=== PATIENT | male | born 1940 | race Caucasian/White ===

== ENCOUNTER 2018-09-22 16:20 | Inpatient (IN) ==
--- NOTE | 2018-09-22 16:40 | ED ---
HPI General Chief Complaint: Arrhythmia / Palpitations Stated Complaint: Irregular heart rate complaint Time Seen by Provider: 09/22/18 16:30 Source: patient Mode of arrival: ambulatory Limitations: no limitations History of Present Illness HPI narrative: 78-year-old male with PMH of tachyarrhythmia, hypertension, A fib s/p ablation presents to the ED via private vehicle for evaluation of palpitations. Onset at 2 AM this morning. He was seen earlier in the ED and discharged home. He states that after he got home the tachycardia has not resolved and this is the reason for his visit. He states that he feels like "heart jumping around in there." He denies associated dizziness, vision changes , chest pain shortness of breath, nausea, vomiting, diaphoresis. He states that he has been monitoring the heart rate both on his Fitbit and with a oximeter at home. He did drive himself to the hospital today. He is concerned that he is in A. fib. He is followed by Dr. Phillips. When he was seen this morning he was administered a dose of long-acting Cardizem after Dr. Chisholm spoke with Dr. Saeed. Related Data Home Medications Medication Instructions Recorded Confirmed diazepam 15 mg PO DAILY 09/04/18 09/22/18 flecainide 100 mg PO Q12H 09/04/18 09/22/18 hydrochlorothiazide 25 mg PO DAILY 09/04/18 09/22/18 irbesartan 150 mg PO DAILY 09/04/18 09/22/18 rivaroxaban [Xarelto] 20 mg PO DAILY 09/04/18 09/22/18 tadalafil [Cialis] 10 mg PO DAILY 09/04/18 09/22/18 Previous Rx's Medication Instructions Recorded amlodipine 10 mg PO DAILY #30 tab 09/08/18 diltiazem HCl [Cardizem CD] 120 mg PO DAILY #30 cap 09/22/18 Allergies Allergy/AdvReac Type Severity Reaction Status Date / Time No Known Allergies Allergy Verified 09/22/18 16:28 Review of Systems ROS: all other systems reviewed are negative [facility] Medical History Medical History AAA (abdominal aortic aneurysm) (Acute) Afib (Acute) Femoral artery stenosis (Acute) HTN (hypertension) (Acute) Surgical History Surgical History History of radiofrequency ablation (RFA) procedure for cardiac arrhythmia (Acute ) Social History Social History Substance History: No History of Abuse Second Hand Smoke Exposure: No Smoking Status: Former smoker Tobacco Type: Cigarettes How Often Do You Have a Drink Containing Alcohol: Never Recent Travel in [facility] within the Last 8 Weeks: No Recent Out of Country Travel within the Last 8 Weeks: No Course Initial Documented Vital Signs Temperature 98.4 F 09/22/18 16:26 Pulse Rate 128 H 09/22/18 16:26 Respiratory Rate 18 09/22/18 16:26 Blood Pressure 136/68 09/22/18 16:26 Pulse Oximetry 98 09/22/18 16:26 Last Documented Vital Signs Temperature 98.4 F 09/22/18 16:26 Pulse Rate 74 09/22/18 19:08 Respiratory Rate 17 09/22/18 19:07 Blood Pressure 130/71 09/22/18 19:07 Pulse Oximetry 97 09/22/18 19:07 Medical Decision Making MDM Narrative Medical decision making narrative: 78-year-old male with PMH of tachyarrhythmia , hypertension, A fib s/p ablation presents to the ED via private vehicle for evaluation of palpitations. Patient is otherwise asymptomatic. He is concerned that he is in A. fib. He is followed by Dr. Phillips. When he was seen this morning he was administered a dose of long-acting Cardizem after Dr. Chisholm spoke with Dr. Saeed. I reviewed the patient's chart. I discussed the patient with Dr. Chisholm. Heart rate 128 on arrival, EKG with A. fib versus flutter. The patient was administered 2.5 mg of metoprolol. Recheck heart rate in the 70s, EKG concerning for heart block. I discussed the results of the workup with the patient as well as the need for admission and cardiac consultation. He is agreeable to this plan. Pacer pads placed in the ED. I spoke with Dr. Rajan who agrees to accept the patient to the medicine service. Please see medicine notes for disposition. Medical Screen Exam Complete: Yes Emergency Medical Condition: Yes Differential Diagnosis Differential Diagnosis: arrythmia versus anxiety versus ACS versus other ECG Data EKG Prior to Arrival: No Attestation: I personally reviewed and interpreted this ECG as follows: Interpretation: EKG rate 111, A. fib versus a flutter with RVR. Reviewed by Dr. Chisholm. Second EKG acquired after administration of labetalol, rate 69, sinus rhythm with sinus arrhythmia and short OK interval. Normal axis. Questionable block. Reviewed by Dr. Chisholm. Discharge Plan Discharge Order Discharge Orders: ED Use Only Admit Order (Routine); Ordered 09/22/18 Ordered By: Rossy Toth Physicians Team ED Provider: Nba Chisholm ED Midlevel Provider: Rossy Toth Primary Care Provider: Gurpreet Gerard Attending Provider: Rebecca Rajan Rxs /Orders / Referrals /Forms Prescriptions: No Action flecainide 100 mg Tablet 100 mg PO Q12H RF: 0 hydrochlorothiazide 25 mg Tablet 25 mg PO DAILY RF: 0 irbesartan 150 mg Tablet 150 mg PO DAILY RF: 0 diazepam 5 mg Tablet 15 mg PO DAILY RF: 0 tadalafil [Cialis] 10 mg Tablet 10 mg PO DAILY RF: 0 rivaroxaban [Xarelto] 20 mg Tablet 20 mg PO DAILY RF: 0 amlodipine 10 mg tablet 10 mg PO DAILY Qty: 30 RF: 0 diltiazem HCl [Cardizem CD] 120 mg capsule,extended release 24hr 120 mg PO DAILY Qty: 30 RF: 0 Discharge Interventions Interventions: Vital Signs Last Done: 09/22/18 19:07 Status ED Status: Admitted Observation Patient
[2018-09-22] MEDS ORDERED: Metoprolol Inj 5 MG/5 ML Vial IV.PUSH ONE (16:52)
[2018-09-22] MEDS ORDERED: Bisacodyl 10 MG Supp RECTAL PRN (22:33)
[2018-09-22] MEDS ORDERED: Acetaminophen 325 MG Tablet PO PRN (22:33)
--- NOTE | 2018-09-22 22:50 | P.HP ---
History of Present Illness Service: [facility] Primary Care Physician: Gurpreet Gerard MD History of Present Illness: 78-year-old male with a past medical history significant for atrial fibrillation anticoagulated on Xarelto, hypertension, hyperlipidemia and PTSD presents to the emergency department for the evaluation of heart palpitations. The patient reports that at 2:15 AM yesterday he awoke from sleep feeling clammy with palpitations. He took his heart rate at home and it was 217. He returned to sleep and upon waking his heart rate was still elevated this time in the 130s and he came to the ED for further evaluation. He was evaluated and treated with p.o. diltiazem at the recommendation of his acct exec. The patient reports that 2 weeks ago he was taken off diltiazem. His heart rate stayed in the 120s upon returning to home and he came back to the emergency department for further evaluation. He denies any chest pain or shortness of breath. No abdominal pain. No nausea/vomiting did no focal neurologic deficits. No fever/chills. His acct exec is Dr. Phillips. Review of Systems All other systems reviewed negative except as stated [facility] - History History Provided By: Patient - Medical History Medical History: Medical History (Last Updated 09/22/18 @ 22:41 by Rebecca Rajan MD) HLD (hyperlipidemia) PTSD (post-traumatic stress disorder) PVD (peripheral vascular disease) AAA (abdominal aortic aneurysm) Afib Femoral artery stenosis HTN (hypertension) - Surgical History Surgical History: Surgical History (Last Updated 09/22/18 @ 22:41 by Rebecca Rajan MD) History of neck surgery History of radiofrequency ablation (RFA) procedure for cardiac arrhythmia - Family History Family History: Family History (Last Updated 09/22/18 @ 22:41 by Rebecca Rajan MD) Other Adopted - Tobacco History Second Hand Smoke Exposure: No Smoking Status: Former smoker Tobacco Type: Cigarettes - Alcohol History How Often Do You Have a Drink Containing Alcohol: Never - Substance Use History Substance History: No History of Abuse - Travel History Recent Travel in the [place] Within the Last 8 Weeks: No Recent Travel Out of the Country Within the Last 8 Weeks: No - Immunization History Tetanus Immunization: Unsure Medications and Allergies Allergies Allergy/AdvReac Type Severity Reaction Status Date / Time No Known Allergies Allergy Verified 09/22/18 16:28 Home Medications Medication Instructions Recorded Confirmed Type diazepam 15 mg PO DAILY 09/04/18 09/22/18 History flecainide 100 mg PO Q12H 09/04/18 09/22/18 History hydrochlorothiazide 25 mg PO DAILY 09/04/18 09/22/18 History irbesartan 150 mg PO DAILY 09/04/18 09/22/18 History rivaroxaban [Xarelto] 20 mg PO DAILY 09/04/18 09/22/18 History tadalafil [Cialis] 10 mg PO DAILY 09/04/18 09/22/18 History Exam Vital signs: Vital Signs 09/22/18 16:26 09/22/18 16:28 09/22/18 19:07 Temperature 98.4 F Pulse Rate 128 H 101 H 70 Respiratory Rate 18 21 17 Blood Pressure 136/68 162/85 H 130/71 Pulse Oximetry 98 98 97 09/22/18 19:08 09/22/18 22:06 09/22/18 22:08 Temperature Pulse Rate 74 95 H Respiratory Rate 16 Blood Pressure 160/72 H Pulse Oximetry 97 97 Intake & Output 09/22/18 09/22/18 09/23/18 06:59 18:59 06:59 Weight 86.183 kg Narrative: Gen.: No acute distress Head: Normocephalic. Atraumatic. EENT: Pupils equal round and reactive to light. Nose without drainage. Airway intact. Throat without injection. Cardiovascular: Regular rate and irregularly irregular rhythm. No murmurs, rubs or gallops. Respiratory: Lungs clear to auscultation bilaterally. No wheezes or rhonchi. Abdomen: Soft, nontender, nondistended. No peritoneal signs. Musculoskeletal: No gross deformities. No edema. Skin: No obvious rashes or erythema. Neuro: Sensory and motor grossly intact. Cranial nerves II through XII grossly intact. Caprini VTE Risk Assessment Caprini VTE Risk Assessment: Moderate/High Risk (score >= 2) Caprini Risk Assessment Model: Point Value = 1 Point Value = 2 Point Value = 3 Point Value = 5 Age 41-60 Minor surgery BMI > 25 kg/m2 Swollen legs Varicose veins or History of unexplained or recurrent spontaneous Oral contraceptives or hormone replacement Sepsis (< 1 month) Serious lung disease, including pneumonia (< 1 month) Abnormal pulmonary function Acute myocardial infarction Congestive heart failure (< 1 month) History of inflammatory bowel disease Medical patient at bed rest Age 61-74 Arthroscopic surgery Major open surgery (> 45 min) Laparoscopic surgery (> 45 min) Malignancy Confined to bed (> 72 hours) Immobilizing plaster cast Central venous access Age >= 75 History of VTE Family history of VTE Factor V Leiden Prothrombin [id number] Lupus anticoagulant Anticardiolipin antibodies Elevated serum homocysteine Heparin-induced thrombocytopenia Other congenital or acquired thrombophilia Stroke (< 1 month) Elective arthroplasty Hip, pelvis, or leg fracture Acute spinal cord injury (< 1 month) Prophylaxis Regimen: Total Risk Factor Score Risk Level Prophylaxis Regimen 0-1 Low Early ambulation 2 Moderate Order ONE of the following: *Sequential Compression Device (SCD) *Heparin 5000 units SQ BID 3-4 Higher Order ONE of the following medications: *Heparin 5000 units SQ TID *Enoxaparin/Lovenox 40 mg SQ daily (WT < 150 kg, CrCl > 30 mL/min) *Enoxaparin/Lovenox 30 mg SQ daily (WT < 150 kg, CrCl > 10-29 mL/min) *Enoxaparin/Lovenox 30 mg SQ BID (WT < 150 kg, CrCl > 30 mL/min) AND/OR *Sequential Compression Device (SCD) 5 or more Highest Order ONE of the following medications: *Heparin 5000 units SQ TID (Preferred with Epidurals) *Enoxaparin/Lovenox 40 mg SQ daily (WT < 150 kg, CrCl > 30 mL/min) *Enoxaparin/Lovenox 30 mg SQ daily (WT < 150 kg, CrCl > 10-29 mL/min) *Enoxaparin/Lovenox 30 mg SQ BID (WT < 150 kg, CrCl > 30 mL/min) AND *Sequential Compression Device (SCD) Assessment and Plan - Plan Assessment/plan: 1. Abnormal EKG EKG shows sinus arrhythmia, concern for complete heart block, as P waves may be nonconducting due to short PA interval Cardiology consulted, appreciate assistance Pacer pads placed on pacing, atropine bedside, continuous telemetry 2. Atrial fibrillation Continue home Xarelto Avoid beta blockers/calcium channel blockers given possibility of heart block 3. Hypertension/hyperlipidemia/PTSD Continue home medications once cleared by cardiology FEN N.p.o. Electrolytes: Monitor and replete as needed Xarelto NS at 100 cc/hour
[2018-09-23 00:08] LABS: Creatine Kinase 40 U/L (39-308)
[2018-09-23] MEDS: Sod Chloride 0.9% Inj 1,000 ML IV.CONT SCH ×2 (00:10→15:38)
[2018-09-23] MEDS ORDERED: diazePAM 5 MG Tablet PO ONE (03:05)
[2018-09-23 07:05] LABS: Baso # (Auto) 0.1 th/mm3 (0.0-0.2); Baso % (Auto) 0.6 % (0.0-2.0); Eos # (Auto) 0.3 th/mm3 (0.0-0.4); Eos % (Auto) 2.9 % (0.0-4.0); Hematocrit 44.6 % (39.0-51.0); Hemoglobin 15.2 gm/dL (13.0-17.0); Lymph # (Auto) 2.6 th/mm3 (1.0-4.8); Mean Corpuscular Hemoglobin 29.6 pg (27.0-34.0); Mean Corpuscular Volume 87.1 fL (80.0-100.0); Mean Platelet Volume 8.1 fL (7.0-11.0); Mono # (Auto) 0.9 th/mm3 (0.0-0.9); Mono % (Auto) 8.3 % (0.0-8.0); Neut # (Auto) 6.9 th/mm3 (1.8-7.7); Neut % (Auto) 64.2 % (16.0-70.0); Platelet Count 279 th/mm3 (150-450); Red Blood Count 5.12 mil/mm3 (4.50-5.90); Red Cell Distribution Width 14.7 % (11.6-17.2); White Blood Count 10.7 th/mm3 (4.0-11.0)
[2018-09-23 07:14] LABS: Anion Gap 8 meq/L (5-15); Blood Urea Nitrogen 18 mg/dL (7-18); Calcium 8.6 mg/dL (8.5-10.1); Carbon Dioxide 24.4 meq/L (21.0-32.0); Chloride 108 meq/L (98-107); Glomerular Filtration Rate 75 mL/min (>89); Glucose,Random 82 mg/dL (74-106); Potassium 3.9 meq/L (3.5-5.1); Sodium 140 meq/L (136-145)
[2018-09-23 07:25] LABS: Creatine Kinase 40 U/L (39-308)
[2018-09-23] MEDS ORDERED: Senna/Docusate Sodium 8.6/50 MG Tablet PO SCH (09:00)
[2018-09-23] MEDS: Rivaroxaban 20 MG Tablet PO SCH (09:14)
[2018-09-23] MEDS ORDERED: dilTIAZem 30 MG Tablet PO PRN ×2 (10:29→10:48)
--- NOTE | 2018-09-23 11:09 | MB ---
cc: Cam Saeed MD DATE: 09/23/2018 REASON FOR CONSULTATION: Tachybrady syndrome. HISTORY OF PRESENT ILLNESS: The patient is a very pleasant 38-year-old gentleman who sees my partner, Dr. Phillips, who has a history of apparently [id number] atrial fibrillation. He presented with symptoms of rapid heart rate following the discontinuation of his Cardizem as an outpatient. While in the emergency department, he was given IV medication which slowed his heart rate down apparently quite significantly resulting in an intermittent heart block. The patient was completely asymptomatic and transferred to [facility] for observation and management. Currently, the patient is in what appears to be a rate-controlled atrial fibrillation on the monitor, although there are bouts of what appeared to be sinus rhythm with isorhythmic AV dissociation and a relatively fast junctional escape. Again, currently the patient is completely asymptomatic without any chest pain, shortness of breath, lightheadedness, dizziness. PAST MEDICAL HISTORY: Atrial fibrillation, on Xarelto. CURRENT MEDICATIONS: 1. Tylenol. 2. Xarelto 20 mg daily. ALLERGIES: NO KNOWN DRUG ALLERGIES. PHYSICAL EXAMINATION: VITAL SIGNS: Afebrile, pulse 82, respiratory rate 18, BP 141/74, saturating 95 on 2 liters. GENERAL: Pleasant gentleman in no distress. NECK: No JVD. LUNGS: Clear to auscultation bilaterally. CARDIOVASCULAR: Regular rate and rhythm. No significant murmurs appreciated. ABDOMEN: Benign. EXTREMITIES: No edema. LABORATORY DATA: White count 10.7, hematocrit 44.6, platelets 279. Sodium 140, potassium 3.9, chloride 100, bicarbonate 24.4, BUN 18, creatinine 0.97, glucose 82. Troponins are negative x2. EKG shows what appears to show a complete heart block with a sinus rate of about 100 with a relatively fast junctional escape at about 65. There does appear to be intermittent conduction. ASSESSMENT: Sick sinus syndrome. The patient with a history of atrial fibrillation who has had both tachycardia and bradycardia responses with intermittent reasonably high-grade heart block. There are reports in the emergency department that he dropped significantly lower heart rate [place] with a higher degree AV block, though I do not have any strips to document this. At this point, I think it is at least reasonable to consider a pacemaker and the patient tells me he has been discussing this with Dr. Phillips for quite some time. I will add p.r.n. oral Cardizem today and Dr. Phillips can see him tomorrow regarding a possible pacemaker. Thank you again for the opportunity to participate in this patient's care. MD MARC Fraga/keith , 10:28 AM , 10:37 AM
--- NOTE | 2018-09-23 12:45 | P.PN ---
Subjective Interval history: Follow-up sick sinus syndrome September 23, 2018-patient seen and examined, denies any chest pain or shortness of breath. Was seen by cardiology this a.m. Cardizem was added to patient's current medication Physical Exam Vital signs: Vital Signs 09/22/18 16:26 09/22/18 16:28 09/22/18 19:07 Temperature 98.4 F Pulse Rate 128 H 101 H 70 Respiratory Rate 18 21 17 Blood Pressure 136/68 162/85 H 130/71 Pulse Oximetry 98 98 97 09/22/18 19:08 09/22/18 22:06 09/22/18 22:08 Temperature Pulse Rate 74 95 H Respiratory Rate 16 Blood Pressure 160/72 H Pulse Oximetry 97 97 09/23/18 00:08 09/23/18 00:50 09/23/18 02:23 Temperature Pulse Rate 63 66 66 Respiratory Rate 13 12 Blood Pressure 124/64 127/69 Pulse Oximetry 95 100 09/23/18 04:00 09/23/18 08:00 09/23/18 12:00 Temperature 98.1 F 98.2 F 98.0 F Pulse Rate 66 82 71 Respiratory Rate 16 18 18 Blood Pressure 157/80 H 141/74 H 100/49 L Pulse Oximetry 98 95 95 Intake & Output 09/22/18 09/23/18 09/23/18 18:59 06:59 18:59 Intake Total 0 / 0 Output Total 750 / 750 Balance -750 / -750 Weight 86.183 kg 86.2 kg Intake: Oral 0 / 0 Output: Urine 750 / 750 Other: Date of Last Bowel Movement 09/22/18 09/22/18 Narrative: GENERAL: NAD SKIN: Warm and dry. HEAD: Normocephalic. EYES: No scleral icterus. No injection or drainage. NECK: Supple, trachea midline. No JVD or lymphadenopathy. CARDIOVASCULAR: Regular rate and rhythm without murmurs, gallops, or rubs. Trans pacer in place RESPIRATORY: Breath sounds equal bilaterally. No accessory muscle use. GASTROINTESTINAL: Abdomen soft, non-tender, nondistended. MUSCULOSKELETAL: No cyanosis, or edema. BACK: Nontender without obvious deformity. No CVA tenderness. Results - Labs CBC & Chem 7: 09/23/18 05:48 09/23/18 05:48 Laboratory Results - last 24 hr 09/22/18 09/23/18 09/23/18 23:34 05:48 05:48 WBC 10.7 RBC 5.12 Hgb 15.2 Hct 44.6 MCV 87.1 MCH 29.6 MCHC 34.0 RDW 14.7 Plt Count 279 MPV 8.1 Neut % (Auto) 64.2 Lymph % (Auto) 24.0 [place] % (Auto) 8.3 H Eos % (Auto) 2.9 Baso % (Auto) 0.6 Neut # (Auto) 6.9 Lymph # (Auto) 2.6 [place] # (Auto) 0.9 Eos # (Auto) 0.3 Baso # (Auto) 0.1 WBC Differential . Differential Comment Auto diff final Sodium 140 Potassium 3.9 Chloride 108 H Carbon Dioxide 24.4 Anion Gap 8 BUN 18 Creatinine 0.97 Estimated GFR 75 L Random Glucose 82 Calcium 8.6 Total Creatine Kinase 40 40 Troponin I Less than 0.02 L Less than 0.02 L Assessment and Plan - Plan 78-year-old man with Sick sinus syndrome Appreciate input from cardiology Immigration Judge has been consulted for evaluation for possible PPM placement September 24, 2018 Continue with calcium channel swetha Atrial fibrillation Continue home Messirelderloy Currently on Cardizem Hypertension/hyperlipidemia/PTSD Continue home medications Will keep n.p.o. after midnight
--- NOTE | 2018-09-23 13:57 | ECG ---
Date Performed: 09/22/2018 Time Performed: 16:49:07 PTAGE: 78 years EKG: SINUS TACHYCARDIA WITH MOBITZ 1 AV BLOCK INTRAVENTRICULAR CONDUCTION DELAY ABNORMAL ECG Com pared to PREVIOUS TRACING , the second degree type 1 (wenckebach), the AB block is new. PREVIOUS T RACIN09/22/2018 08.54 DOCTOR: Cam Saeed Interpretating Date/Time 09/23/2018 13:55:48
--- NOTE | 2018-09-23 13:58 | ECG ---
Date Performed: 09/22/2018 Time Performed: 18:52:52 PTAGE: 78 years EKG: LIKELY THIRD DEGREE HEART BLOCK WITH AN ACCELERATED JUNCTIONAL ESCAPE ABNORMAL ECG Compared to PREVIOUS TRACING , the patients heart block is more advanced. PREVIOUS TRACIN 8 16.49 DOCTOR: Cam Saeed Interpretating Date/Time 09/23/2018 13:57:12
--- NOTE | 2018-09-23 14:00 | ECG ---
Date Performed: 09/23/2018 Time Performed: 05:53:52 PTAGE: 78 years EKG: Atrial fibrillation IV conduction defect Possible inferior infarct - age undetermined Later al T wave changes may be due to myocardial ischemia Abnormal ECG Since PREVIOUS TRACING , no significant change noted PREVIOUS TRACIN09/22/2018 23.38 DOCTOR: Cam Saeed Interpretating Date/Time 09/23/2018 13:58:38
--- NOTE | 2018-09-23 14:00 | ECG ---
Date Performed: 09/22/2018 Time Performed: 23:38:10 PTAGE: 78 years EKG: LIKELY 3RD DEGREE HEART BLOCK WITH JUNCTIONAL ESCAPE VS 2:1 AV BLOCK INTRAVENTRICULAR CONDU CTION DELAY ABNORMAL ECG Since PREVIOUS TRACING , no significant change noted PREVIOUS TRACIN09/22/2018 18.52 DOCTOR: Cam Saeed Interpretating Date/Time 09/23/2018 13:58:18
[2018-09-23] MEDS: diazePAM 5 MG Tablet PO SCH (21:51)
[2018-09-24] MEDS: diazePAM 5 MG Tablet PO SCH ×3 (09:01→21:39)
[2018-09-24] MEDS: Rivaroxaban 20 MG Tablet PO SCH ×2 (09:05→21:39)
--- NOTE | 2018-09-24 11:03 | P.PN ---
Subjective Interval history: Follow-up sick sinus syndrome September 23, 2018-patient seen and examined, denies any chest pain or shortness of breath. Was seen by cardiology this a.m. Cardizem was added to patient's current medication September 24, 2018-patient seen and examined, no syncopal episode and denies any chest pain or shortness of breath. Physical Exam Vital signs: Vital Signs 09/23/18 12:00 09/23/18 13:00 09/23/18 14:00 Temperature 98.0 F Pulse Rate 84 122 H 88 Respiratory Rate 18 Blood Pressure 131/85 Pulse Oximetry 99 09/23/18 15:00 09/23/18 16:00 09/23/18 17:00 Temperature 98.0 F Pulse Rate 72 86 102 H Respiratory Rate 18 Blood Pressure 128/80 Pulse Oximetry 99 09/23/18 18:00 09/23/18 19:00 09/23/18 20:00 Temperature 98.3 F Pulse Rate 92 H 83 72 Respiratory Rate 16 Blood Pressure 141/86 H Pulse Oximetry 96 09/23/18 21:00 09/23/18 22:00 09/23/18 23:00 Temperature Pulse Rate 80 82 80 Respiratory Rate Blood Pressure Pulse Oximetry 09/24/18 00:00 09/24/18 01:00 09/24/18 02:00 Temperature Pulse Rate 85 80 84 Respiratory Rate 16 Blood Pressure Pulse Oximetry 09/24/18 03:00 09/24/18 04:00 09/24/18 05:00 Temperature Pulse Rate 78 80 81 Respiratory Rate 16 Blood Pressure Pulse Oximetry 09/24/18 06:00 Temperature Pulse Rate 85 Respiratory Rate Blood Pressure Pulse Oximetry Intake & Output 09/23/18 09/24/18 09/24/18 18:59 06:59 18:59 Intake Total 1740 / 1740 240 / 240 Output Total 1400 / 1400 450 / 450 Balance 340 / 340 -210 / -210 Weight 86 kg Intake: IV 1000 / 1000 NS Inj 1,000 ML @ 100 mls/hr IV 1000 / 1000 .CONT .Q10H [facility] Rx#:[id number] Oral 740 / 740 240 / 240 Output: Urine 1400 / 1400 450 / 450 Other: Date of Last Bowel Movement 09/22/18 09/22/18 Narrative: GENERAL: NAD SKIN: Warm and dry. HEAD: Normocephalic. EYES: No scleral icterus. No injection or drainage. NECK: Supple, trachea midline. No JVD or lymphadenopathy. CARDIOVASCULAR: Regular rate and rhythm without murmurs, gallops, or rubs. Trans pacer in place RESPIRATORY: Breath sounds equal bilaterally. No accessory muscle use. GASTROINTESTINAL: Abdomen soft, non-tender, nondistended. MUSCULOSKELETAL: No cyanosis, or edema. BACK: Nontender without obvious deformity. No CVA tenderness. Results - Labs CBC & Chem 7: 09/23/18 05:48 09/23/18 05:48 Assessment and Plan - Plan 78-year-old man with Sick sinus syndrome Appreciate input from cardiology Materials Development Engineer has been consulted for evaluation for possible PPM placement Continue with calcium channel swetha Atrial fibrillation Continue home Xarelto Currently on Cardizem Hypertension/hyperlipidemia/PTSD Continue home medications
[2018-09-24] MEDS: Flecainide 100 MG Tablet PO SCH (12:14)
[2018-09-24] MEDS ORDERED: Lidocaine 2% Inj 50 ML Vial ONE (18:47)
[2018-09-24] MEDS ORDERED: ceFAZolin 1 GM Premix Inj 2 GM/100 ML PIGGYBACK IV.SIG ONE (18:48)
[2018-09-24] MEDS ORDERED: Sodium Chlor 0.9% Inj 250 ML ONE (18:48)
--- NOTE | 2018-09-24 19:15 | MB ---
cc: Madeleine Phillips MD,Cam Boyle,Dariusz Phillips,Madeleine AGGARWAL DATE: 09/24/2018 REASON FOR CONSULTATION: Severe bradycardia for permanent pacemaker insertion. HISTORY OF PRESENT ILLNESS: Mr. Tyler is a 78-year-old gentleman, well known by my service for tachybrady syndrome, recent hospitalization, bradycardia was asymptomatic. Cardizem was discontinued. He was discharged home readmitted due to tachyarrhythmia. During hospitalization, a calcium tablet swetha was reinitiated. The patient has severe bradycardia. I was consulted for evaluation and device insertion. The chart was reviewed. The patient was evaluated. ALLERGIES: None. SOCIAL HISTORY: The patient stopped smoking and drinking. FAMILY HISTORY: Noncontributory to his current medical condition. MEDICATIONS AT HOME: He was on: 1. Xarelto. 2. Tylenol. MEDICATIONS: Currently, he is on: 1. Cardizem 30 mg every 6 hours. 2. Flecainide 100 mg every 12 hours. 3. Losartan 150 mg a day. REVIEW OF SYSTEMS: Currently, no chest pain, no chest discomfort. No fever. PHYSICAL EXAMINATION: GENERAL: Alert, fully oriented. VITAL SIGNS: Blood pressure on evaluation 131/89, pulse around 100, respiratory rate 18. LUNGS: Ventilated. CARDIOVASCULAR: S1, S2. No gallop. ABDOMEN: Soft. No mass. EXTREMITIES: No edema. DIAGNOSTIC DATA: Electrocardiogram yesterday at 4:44 in the morning indicated what appeared to be a very irregular rhythm, possible sinus rhythm, low voltage P wave, diffuse ST changes. LABORATORY DATA: Hemoglobin is 15.2, white blood cell 10.7. Potassium 3.9, creatinine 0.97. Troponin less than 0.02. ASSESSMENT AND RECOMMENDATIONS: Mr. Tyler has a tachybrady syndrome with a heart rate difficult to control. He needs negative chronotropic medication. A permanent pacemaker will be inserted and medication will be reinitiated. The risks, the nature and the benefits of the procedure are clearly stated to him. Risks include pneumothorax, cardiac perforation, stroke and even . The patient understands and agreed to proceed. Procedure will be performed during hospitalization. Madeleine Phillips MD HS/bryant , 06:14 PM , 06:23 PM
[2018-09-24] MEDS ORDERED: fentaNYL Citrate Inj 100 MCG/2 ML Ampul ONE (19:39)
--- NOTE | 2018-09-24 19:44 | P.PCNCA ---
Dual PPM Implantation - Dual PPM Implantation Procedure Date: 09/24/18 Dual PPM Implantation: PROCEDURE: Dual chamber permanent pacemaker implantation. INDICATIONS FOR PROCEDURE: Tesfaye Tyler is a 78-year-old M with tachy saturnino Sx, hx of atrial fibrillation who was referred for pacer insertion. The risks, the nature, and the benefit of the procedure were clearly stated to the patient. The risks include pneumothorax, cardiac perforation, stroke and even . The patient understood and agreed to proceed. PROCEDURE After written informed consent was obtained, the patient was transferred to the EP lab and was prepped and draped in the usual sterile fashion. Conscious sedation was initiated and maintained throughout the procedure by the anesthesiologist. Once sedation was verified, the left infraclavicular area was with 2% Xylocaine. Using modified Seldinger technique, the left subclavian vein was cannulated on two occasions and two guidewires were advanced. Then, using a #11 blade scalpel, a 2 cm was made two fingerbreadths below the left clavicle. This incision was then taken down through the deep fascial layer using Bovie cautery and blunt dissection. Into the inferomedial direction, device pocket was dissected, then the wire was dissected into the pocket. A 2- 0 Vicryl suture was placed around the wire to prevent backbleeding. At this point, over the lateral wire, an 7-Northern Irish dilator and introducer was advanced. As the dilator and wire were removed, an active fixation right ventricular pacing and sensing lead was advanced. After adequate pacing and sensing thresholds were obtained, the lead was secured in the pocket using 2-0 Ethibond suture. Then, over the remaining wire, an 7-Northern Irish dilator and introducer was advanced. As the dilator and wire were removed, an active fixation right atrial pacing and sensing lead was advanced. After adequate pacing and sensing thresholds were obtained, the lead was secured into the pocket using 2-0 Ethibond suture. At that point, the pocket was copiously irrigated using antibiotic solution. This was connected to the generator and placed into the pocket. I did proceed with wound closure. The deep fascial layer was approximated using 2-0 Vicryl suture in a continuous fashion. The subcutaneous layer was approximated with 2-0 Vicryl suture in a continuous fashion. The subcuticular layer was approximated with 2-0 Vicryl suture in a continuous fashion. Dermabond adhesive was applied to the wound followed by sterile pressure dressing. There was no complication. The patient tolerated procedure. Blood loss minimal. IMPLANTED HARDWARE The permanent pacemaker is a Inkive. Model # W1DR01, serial number [id number]. The right atrial pacing and sensing lead is a Medtronic model number 4076-52, serial number [id number]. The right ventricular pacing and sensing lead is a Medtronic model number 4076- 58, serial number [id number]. THRESHOLDS The right atrial pacing threshold in the bipolar mode was 2.1V @ 0.4 milliseconds, lead impedance 942 ohms and P-wave at 4.4 millivolts. The right ventricular pacing threshold in the bipolar mode was 1.4 @ 0.4 milliseconds, lead impedance 1450 ohms and R-wave at the 9.8 millivolts. SETTINGS The device was set in the DDD60, upper limit 120 beats per minute. Hysteresis and mode switch are on. CONCLUSIONS: Successful permanent pacemaker implantation. COMMENT AND RECOMMENDATION The patient will be transferred to the telemetry unit and will be observed. When stable, the patient can be discharged home.
--- NOTE | 2018-09-24 19:45 | CATHPROC ---
Patient Name: Tesfaye Tyler Study #: [id number] Initial MD: Madeleine Phillips Date of : 1940 Study Date: 09/24/2018 Cardiac Catheterization Report 09/24/2018 7:45:06 PM Financial #: [id number] 1 of 9 Patient Name: Tesfaye Tyler Study #: [id number] Initial MD: Madeleine Phillips Date of : 1940 Study Date: 09/24/2018 Entire Case Report Patient Information Patient Name Tesfaye Tyler Date of 1940 Age 78 years Financial # [id number] Gender M AlternateID Lab Number 6 Room Number 243 Height (in) 72.0 Height (cm) 182.8 BSA 2.08 Weight (lbs) 189.2 Weight (kg) 86.0 Patient Address/Phone Number Home Address [facility] Home Phone Number [address] [facility] [phone] Study Information Study Number Admission Scheduled Start Study Start [id number] Sep 22 2018 10:33PM 09/24/2018 Sep 24 2018 6:06PM [place] Service Electrophysiology Study Admit Source Facility Department Other [facility] Internship Physician and Clinical Staff Initial Madeleine Oshea Office Manager Receptionist Mohini Hickman RCIS TECH2 Other Anesthesia, CARDIOPULMONARY TECHNOLOGIST CHIEF Recorder Raquel Gomez RN RN Lawler, Barbara,Charu Bocanegra RN,Tone Rogers,RT(R) Procedures Performed Procedure Lead Insertion 09/24/2018 7:45:06 PM Financial #: [id number] 2 of 9 Patient Name: Tesfaye Tyler Study #: [id number] Initial MD: Madeleine Phillips Date of : 1940 Study Date: 09/24/2018 Equipment Time Lpc Description Size Mfg Part Number Used/Scraped DERMABOND, ADHESIVE SKIN [id number] 18:11 CORDIS/PACER * Used GLUE MINI *[id number] 18:11 [place] BLANKET,WARM AIR CCL * Used *[id number] TP-1103 18:11 MEDLINE INDUSTRIES SUTURE, STRIP PLUS 1/2" * Used *[id number] 18:11 MEDLINE PACER VELA, LIMB * 2530 *[id number] Used [id number] 18:11 MEDLINE PACER PACK, PACER CUSTOM * Used *[id number] 18:56 Needle Sponge Count 2 22 Used 18:56 Needle Sponge Count 20 200 Used 18:56 Needle Sponge Count 3 3 Used 19:34 Needle Sponge Count 4 4 Used SUTURE, 0 ETHIBOND [CT1] (CX21D), 8pk SUTURE, 2-0 VICRYL [CT1] (JZI132A) SUTURE, 2-0 VICRYL [CT1] (IOA981O) [facility] PAD, ELECTROSURGICAL 18:11 * [id number] *[id number] Used SURGICAL GROUNDING ORANGE LEAD, CAPSURE FIX NOVUS, 4076-52CM 19:18 VITATRON MEDTRONIC 52CM Used 52CM *[id number] LEAD, CAPSURE FIX NOVUS, 4076-58CM 19:16 VITATRON MEDTRONIC 58CM Used 58CM *[id number] 19:25 VITATRON MEDTRONIC PACEMAKER, ALDEN XT DR PLUMMERE-DDDR [id number] Used [id number] 18:11 [employer] S[employer]VER. / * Used *27255 Equipment Model, Serial, Lot Number and Expiration Data Description Model Number Serial Number Lot Number Expiration Date LEAD, CAPSURE FIX NOVUS, 52CM 4076-52 [id number] 07-07-2020 LEAD, CAPSURE FIX NOVUS, 58CM 4076-58 [id number] 05-16-2020 PACEMAKER, ALDEN XT [id number] 02-11-2020 Insurance Information Insurance Payor Medicare Third Alliance Party Third Alliance Party Number MEDICARE A B [facility] History: Allergies Allergy Reaction No Known Allergies 09/24/2018 7:45:06 PM Financial #: [id number] 3 of 9 Patient Name: Tesfaye Tyler Study #: [id number] Initial MD: Madeleine Phillips Date of : 1940 Study Date: 09/24/20 18 History: Risk Factors Hypertension Yes Labs Hgb (g/dl) Hct (%) WBC (l/cumm) Platelets (thousands) 11.60-17.00 35.00-51.00 4.00-11.00 150.00-450.00 15.0 44 10 279 Glucose (mg/dl) BUN (mg/dl) Creatinine (mg/dl) BUN:Creatinine (1:x) 74.00-106.00 7.00-18.00 0.50-1.30 10.00-20.00 82 18 0.9 20 Na (meq/l) K (meq/l) 136.00-145.00 3.50-5.10 140 3.9 Medication Medication Total Dose (Bolus/Oral) Medication Total Dosage/Unit 2% XYLOCAINE 50 mL Medications (Bolus/Oral) Medication Time Given Dosage/Unit Administered By Reason 2% XYLOCAINE 09/24/2018 7:12:58 PM 50 mL Madeleine Phillips 50 mL 2% XYLOCAINE given in lab by Madeleine Phillips via Subcutaneous. Medication (Drip) Medication Time Given Dosage/Unit Concentration/Unit Diluent (ml) Solution ANCEF 09/24/2018 6:55:15 PM 2 g 2 g ANCEF given in lab by Anesthesia, CARDIOPULMONARY TECHNOLOGIST CHIEF via Peripheral IV. Ordered by Madeleine Phillips. Reason: As pe r physicians verbal order. IV Solutions 09/24/2018 6:33:13 PM 0 mL (IV) NaCl .9 IV Solutions given in lab by Jeanne Sanchez RN in Right Arm via Peripheral IV. Pump/Drip Flow = 30 ml/hr using NaCl .9. Reason: As per physicians verbal order. VANCOMYCIN DRIP 09/24/2018 6:40:43 PM 1 g 1 g VANCOMYCIN DRIP given in lab by Anesthesia, CARDIOPULMONARY TECHNOLOGIST CHIEF via Peripheral IV. Ordered by Madeleine Phillips. Sheree son: As per physicians verbal order. 09/24/2018 7:45:06 PM Financial #: [id number] 4 of 9 Patient Name: Tesfaye Tyler Study #: [id number] Initial MD: Madeleine Phillips Date of : 1940 Study Date: 09/24/2018 Initial Case Assessment Cardiovascular HR NIBP 143 163/92 Edema Present Skin color Skin None Normal Warm Dry Circulatory - Right Pulses Dorsalis Pedis 2 Scale (0,1,2,3,4,d) Circulatory - Left Pulses Dorsalis Pedis 2 Scale (0,1,2,3,4,d) Circulatory - Lower Extremities Color Lower Right Color Lower Left Normal Normal Neurological State Oriented to time-place- Alert Moves all extremities person Respiration - General Respiration Rate SpO2 (%) (B/min) 16 96 09/24/2018 7:45:06 PM Financial #: [id number] 5 of 9 Patient Name: Tesfaye Tyler Study #: [id number] Initial MD: Madeleine Phillips Date of : 1940 Study Date: 09/24/2018 Final Case Assessment Cardiovascular HR Rhythm NIBP Chest Pain 65 PACED 107/55 0 Edema Present Skin color Skin None Normal Warm Dry Circulatory - Lower Extremities Color Lower Right Color Lower Left Normal Normal Neurological State Unresponsive Comment: UNDER ANESTHESIA Respiration - General Respiration Rate SpO2 (%) (B/min) 16 100 Chronological Log Time Study Chronological Log 18:27:04 Patient arrived via Bed. 18:27:04 Patient Name, D.O.B, / Armband Verified By R.N. 18:27:05 Consent signed by the physician and the patient and verified by the [facility] staff. 18:27:06 Pre-op and post- op instructions given; patient acknowledges understanding of instructions. 18:27:06 Verbal Stimulation=2 Physical Stimulation=2 Airway=2 Respiration=2 TOTAL=8. (0=absent, 1=li mited, 2=present) 18:27:07 Patient has been NPO for More than 6Hrs. 18:27:08 Skin Breakdown- none per pt 18:27:09 Patient Warmer Placed on the Table. 18:31:09 Disposable Defibrillator Pads Placed On Patient. 18:31:33 Lisa Prominences Protected 18:31:58 History and physical on the chart or being dictated. 18:32:40 A # 20 IV was noted in the Upper Arm (right). Grade = 0 18:32:49 2% CHLORHEXIDINE GLUCONATE WASH AND NASAL SWIPE DONE PRIOR TO PROCEDURE. IV Solutions given in lab by Jeanne Sanchez RN in Right Arm via Peripheral IV. Pump/Drip Flow = 30 ml/hr using NaCl 18:33:13 .9. Reason: As per physicians verbal order. 18:34:50 Table restraints applied according to hospital policy Anesthesia at bedside. Assumes care of patient. All vital signs to be recorded on anesthesia fl ow sheet. Please refer to 18:35:57 sheet for results. 09/24/2018 7:45:06 PM Financial #: [id number] 6 of 9 Patient Name: Tesfaye Tyler Study #: [id number] Initial MD: Madeleine Phillips Date of : 1940 Study Date: 09/24/2018 Assessment: Initial Case, FP=942 BPM, LZSX=564/92 mmhg, Edema=None, Color=Normal, Skin = Warm, Dry Right Pulses: [place] Ped=2 Left Pulses: [place] Ped=2 18:36:08 Lower Right Extremities: Color=Normal Lower Left Extremities: Color=Normal Neurological: State=Alert, Ox3, [place] Respiration: Resp=16 B/min, SpO2=96 % 18:37:18 Bovie ground pad applied to: right thigh 18:39:06 Chest hair clipped by MM. 1 g VANCOMYCIN DRIP given in lab by Anesthesia, CARDIOPULMONARY TECHNOLOGIST CHIEF via Peripheral IV. Ordered by Rosalia Phillips Reason: As per 18:40:43 physicians verbal order. 18:43:16 Reference ECG taken 18:53:02 Bilateral Upper Chest Prepped Times Two. 2 g ANCEF given in lab by Anesthesia, CARDIOPULMONARY TECHNOLOGIST CHIEF via Peripheral IV. Ordered by Madeleine Phillips. Reason: As per physicians 18:55:15 verbal order. 18:55:27 Anesthesiologist present for LMA insertion. First Sponge And Instrument Count Done by Tone Jay, RT(R). 18:55:39 Hypo's: 3, Sponges: 20, Bovie/scratch: 2 Sutures: 10, Blades: 1, Instruments: 26, Syveck Patches: 0 verified by mm 18:57:47 A sterile drape was applied after a 5 min. prep drying time. 19:01:24 MD paged 19:02:28 MD responded 19:09:38 MD arrived. Time Out. Correct patient, procedure, procedure equipment, site and side verified with physicia n present. Time 19:11:06 concurred by MD, individual staff and CARDIOPULMONARY TECHNOLOGIST CHIEF. Time Out #2 - Consents verified, patient in correct position, all results are labled and displa yed, safety precautions 19:11:29 taken, antibiotics administered. Time out concurred by MD, individual staff and CARDIOPULMONARY TECHNOLOGIST CHIEF in procedu re 19:11:54 Case Start 19:12:58 50 mL 2% XYLOCAINE given in lab by Madeleine Phillips via Subcutaneous. 19:13:44 Vascular access was obtained in the Subclav. Vein (Lft. 19:13:45 Wire inserted 19:13:47 Surgical Incision Made. 19:15:12 A 7 fr safe sheath was advanced into the Subclav. Vein (Lft using the Modified Seldinger te chnique. 19:16:30 A LEAD, CAPSURE FIX NOVUS, 58CM 58CM was inserted and positioned in the RV. 19:17:36 Lead placement verified under fluoroscopy 19:20:40 The RV lead impedance and threshold being tested. 19:20:44 The RV lead was sutured to the fascia. 19:21:00 Vascular access was obtained in the Subclav. Vein (Lft. 19:21:05 Wire inserted 19:21:12 A 7 fr safe sheath was advanced into the Subclav. Vein (Lft using the Modified Seldinger te chnique. 19:22:18 A LEAD, CAPSURE FIX NOVUS, 52CM 52CM was inserted and positioned in the RA. 19:23:28 Lead placement verified under fluoroscopy 19:23:31 The Atrial lead impedance and threshold is being tested. 09/24/2018 7:45:06 PM Financial #: [id number] Patient Name: Tesfaye Tyler Study #: [id number] Initial MD: Madeleine Phillips Date of : 1940 Study Date: 09/24/2018 19:23:32 The Atrial lead was sutured to the fascia. 19:32:46 A PACEMAKER, ALDEN XT DR MARI-DDDR was connected and placed in the pocket. 19:33:32 Pocket flushed with antibiotic solution Second Sponge And Instrument Count Done by Tone Jay RT(R). Hypo's: 4, Sponges: 20, Bovie/scratch: 2 19:34:00 Sutures: ~SUTURE~, Blades: 1, Instruments: ~INSTRU~, Syveck Patches: ~SYVECK PATCH~ HYPO ADDED AFTER CASE STARTED 19:36:08 Implant Procedure was performed. 19:36:14 A PPM Implant . (Dual) 19:39:24 The pocket was closed. The Final Sponge And Instrument Count Done by Pierre, Tone, RT(R). 19:39:30 Hypo's: 4, Sponges: 20, Bovie/scratch: 2 Sutures: 10, Blades: 1, Instruments: 26, Syveck Patches: ~SYVECK PATCH~ 19:41:52 Steri-strips and a sterile dressing applied to site. 19:42:52 PACU called. Spoke to SINTIA 19:43:13 Bedside Report will be given. Assessment: Final Case, HR=65 BPM, Rhythm=PACED, AYMK=830/55 mmhg, Chest Pain=0, Edema=None, Color=Normal, Skin = Warm, Dry Lower Right Extremities: Color=Normal 19:43:21 Lower Left Extremities: Color=Normal Neurological: State=Unresponsive, Comment=UNDER ANESTHESIA Respiration: Resp=16 B/min, PuN9=632 % 19:44:07 Case End (Physician broke scrub) 19:44:31 No case complications noted. 19:44:31 Cine recording checked. 19:44:36 Implantable Device card placed in patient's chart. 19:44:38 Defibrillator and ground pads removed. Skin intact. 19:54:41 Patient moved to stretcher 19:54:51 A sling was placed on the affected arm. End Study - Contrast Media Used In Study Contrast Total Opened (mL) Total Used (mL) Total Wasted (mL) Unspecified 0 0 0 End Study - Maximum Contrast Load Max Contrast Load (mL) 477.8 09/24/2018 7:45:06 PM Financial #: [id number] Patient Name: Tesfaye Tyler Study #: [id number] Initial MD: Madeleine Phillips Date of : 1940 Study Date: 09/24/2018 End Study - Radiation Exposure Fluoro Time Fluoro Dose (mGy) Cine Dose (uGym2) (minutes) 3.0 21 200 End Study - Patient Disposition Complications Transferred To Interventional Outcome No Telemetry Bed successful 09/24/2018 7:45:06 PM Financial #: [id number]
--- NOTE | 2018-09-24 20:48 | XR ---
EXAM DATE: 09/24/2018 8:40 PM EST AGE/SEX: 78 years / Male INDICATIONS: Post pacemaker placement CLINICAL DATA: This is the patient's initial encounter. Patient reports that signs and symptoms have been present for 1 day and indicates a pain score of 0/10. MEDICAL/SURGICAL HISTORY: Hypertension. None. COMPARISON: [facility] [place], CHEST 1V SINGLE AP, 09/22/2018. . FINDINGS: A single semierect AP view of the chest demonstrates a lateral right pneumothorax with separation of visceral and parietal pleural measuring up to 8 mm, extending from inferior lateral to upper lateral chest; for reflection is not identified in the apex. The lungs to be symmetrically aerated without ev idence of mass, infiltrate or effusion. The heart is mildly enlarged, stable from prior. Interval pl acement of cardiac pacer with pacer box on the left side and leads projected in the right atrium and right ventricle.. Osseous structures are intact. CONCLUSION: 1. Evidence of 8 mm right-sided pneumothorax extending from lower to upper lateral chest. 2. Left-sided cardiac pacer placement with leads project in the right atrium and ventricle. Electronically signed by: Osmany Feliciano MD Board Certified Radiologist 09/24/2018 8:47 PM EST
[2018-09-24] MEDS: dilTIAZem CD 240 MG Capsule PO SCH (21:40)
--- NOTE | 2018-09-24 21:48 | XR ---
EXAM DATE: 09/24/2018 9:40 PM EST AGE/SEX: 78 years / Male INDICATIONS: Evaluate pneumothorax. Post pacemaker. CLINICAL DATA: This is the patient's subsequent encounter. Patient reports that signs and symptoms h ave been present for 1 day and indicates a pain score of 0/10. MEDICAL/SURGICAL HISTORY: . Aneurysm, abdominal. Hypertension. A-fib. Pacemaker. COMPARISON: [facility], CHEST 1V SINGLE AP, 09/24/2018. . FINDINGS: A frontal expiratory view of the chest in erect position was performed to evaluate possible right-maximino ed pneumothorax seen on this semierect portable film. There is no evidence of pneumothorax. There is a skin fold seen in the lateral to the right chest wall which conceivably could have been superimpose d upon the lateral chest on the semierect film. The lungs are symmetrically aerated cardiac pacer in place with stable position of the leads. The heart is normal in size. Mild tortuosity descending thor acic aorta. CONCLUSION: No evidence of pneumothorax. The finding seen on the prior semierect chest x-ray probably represented a skinfold. Electronically signed by: Osmany Feliciano MD Board Certified Radiologist 09/24/2018 9:46 PM EST
[2018-09-25] MEDS: Flecainide 100 MG Tablet PO SCH ×2 (00:50→12:59)
[2018-09-25] MEDS: ceFAZolin 2 GM Premix Inj 2 GM/50 ML PIGGYBACK IV.SIG SCH ×2 (01:27→13:02)
--- NOTE | 2018-09-25 08:20 | ECG ---
Date Performed: 09/24/2018 Time Performed: 20:11:27 PTAGE: 78 years EKG: Sinus rhythm MODERATE INTRAVENTRICULAR CONDUCTION DELAY BORDERLINE ECG PREVIOUS TRACING : 09/23/2018 05.53 Compared to previous tracing, the patient is back in sinus rhythm. DOCTOR: Yesenia Iglesias Interpretating Date/Time 09/25/2018 08:22:08
--- NOTE | 2018-09-25 08:49 | P.PN ---
Subjective Interval history: Feeling ok Physical Exam Vital signs: Vital Signs 09/24/18 08:52 09/24/18 09:00 09/24/18 10:00 Temperature 97.8 F Pulse Rate 80 74 80 Respiratory Rate 16 Blood Pressure 137/80 Pulse Oximetry 99 09/24/18 11:00 09/24/18 11:55 09/24/18 12:00 Temperature 98.0 F Pulse Rate 76 82 84 Respiratory Rate 16 Blood Pressure 120/73 Pulse Oximetry 95 09/24/18 13:00 09/24/18 14:00 09/24/18 15:00 Temperature Pulse Rate 84 72 98 H Respiratory Rate Blood Pressure Pulse Oximetry 09/24/18 16:00 09/24/18 17:00 09/24/18 18:00 Temperature 98.5 F Pulse Rate 106 H 118 H 108 H Respiratory Rate 16 Blood Pressure 131/89 Pulse Oximetry 96 09/24/18 19:59 09/24/18 20:00 09/24/18 20:15 Temperature 98.0 F Pulse Rate 68 67 68 Respiratory Rate 12 12 12 Blood Pressure 133/64 128/64 103/59 L Pulse Oximetry 97 97 95 09/24/18 20:30 09/24/18 20:45 09/24/18 20:51 Temperature 98.0 F Pulse Rate 66 66 Respiratory Rate 12 15 Blood Pressure 104/56 L 109/60 Pulse Oximetry 95 97 97 09/24/18 21:23 09/24/18 21:45 09/24/18 22:00 Temperature 98 F Pulse Rate 71 71 74 Respiratory Rate 17 Blood Pressure 130/78 Pulse Oximetry 97 09/24/18 23:00 09/25/18 00:00 09/25/18 00:47 Temperature 98.9 F Pulse Rate 80 78 67 Respiratory Rate 18 Blood Pressure 119/69 Pulse Oximetry 97 09/25/18 01:00 09/25/18 02:00 09/25/18 03:00 Temperature Pulse Rate 66 62 60 Respiratory Rate Blood Pressure Pulse Oximetry 09/25/18 04:01 09/25/18 05:00 09/25/18 05:01 Temperature 98.5 F Pulse Rate 60 64 60 Respiratory Rate 18 Blood Pressure 116/57 L Pulse Oximetry 98 09/25/18 06:00 09/25/18 07:00 Temperature Pulse Rate 58 L 60 Respiratory Rate Blood Pressure Pulse Oximetry Intake & Output 09/24/18 09/25/18 09/25/18 18:59 06:59 18:59 Intake Total 290 / 290 Output Total 1825 / 1825 450 / 450 Balance -1825 / -1825 -160 / -160 Weight 85.5 kg Intake: IV 50 / 50 Ancef 2 GM Premix Inj 2 gm In 50 / 50 50 ml @ 100 mls/hr IV.SIG Q8H VLADIMIR Rx#:[id number] Oral 240 / 240 Output: Urine 1825 / 1825 450 / 450 Other: Date of Last Bowel Movement 09/22/18 09/22/18 - Constitutional no acute distress - Routine HEENT Exam Head: Present: normocephalic Eye: Present: PERRL ENT: Present: mucous membranes moist - Routine Respiratory Exam Present: CTA bilaterally - Routine Cardiovascular Exam Present: RRR - Routine Abdominal Exam Present: soft - Routine Neurological Exam Present: alert, oriented X3, normal reflexes - Detailed Neurological Exam: Coma Scale Eye Opening: Spontaneous Verbal Response: Oriented Motor Response: Obey commands [place] Coma Scale Total: 15 Results - Labs CBC & Chem 7: 09/23/18 05:48 09/23/18 05:48 - Imaging Impressions Chest X-Ray 09/24/18 00:00 CONCLUSION: 1. Evidence of 8 mm right-sided pneumothorax extending from lower to upper lateral chest. 2. Left-sided cardiac pacer placement with leads project in the right atrium and ventricle. Chest X-Ray 09/24/18 00:00 CONCLUSION: No evidence of pneumothorax. The finding seen on the prior semierect chest x- ray probably represented a skinfold. Assessment and Plan - Assessment (1) Pacemaker Code(s): Z95.0 - Presence of cardiac pacemaker Status: Acute Plan: SP pacer. Doping well Clean surgical wound Device well functioning Can be DH whenever ok with the managing team Follow up as OP (2) Sinus bradycardia Code(s): R00.1 - Bradycardia, unspecified Status: Acute Plan: Sinus now A pacing
[2018-09-25] MEDS ORDERED: TADALAFIL 10 MG PO SCH (09:00)
[2018-09-25] MEDS ORDERED: hydroCHLOROthiazide 25 MG Tablet PO SCH (09:00)
[2018-09-25] MEDS: dilTIAZem CD 240 MG Capsule PO SCH (09:41)
[2018-09-25] MEDS: diazePAM 5 MG Tablet PO SCH ×2 (09:41→12:58)
[2018-09-25] MEDS: Rivaroxaban 20 MG Tablet PO SCH (09:42)
--- NOTE | 2018-09-25 11:27 | P.DS ---
Date of admission: 09/22/18 22:33 Primary care physician: Gurpreet Gerard MD Brief History from admission: 78-year-old male with a past medical history significant for atrial fibrillation anticoagulated on Xarelto, hypertension, hyperlipidemia and PTSD presents to the emergency department for the evaluation of heart palpitations. The patient reports that at 2:15 AM yesterday he awoke from sleep feeling clammy with palpitations. He took his heart rate at home and it was 217. He returned to sleep and upon waking his heart rate was still elevated this time in the 130s and he came to the ED for further evaluation. He was evaluated and treated with p.o. diltiazem at the recommendation of his service line bus cleaner. The patient reports that 2 weeks ago he was taken off diltiazem. His heart rate stayed in the 120s upon returning to home and he came back to the emergency department for further evaluation. He denies any chest pain or shortness of breath. No abdominal pain. No nausea/vomiting did no focal neurologic deficits. No fever/chills. His service line bus cleaner is Dr. Phillips. DS: Medications - Discharge Medications Prescriptions: diltiazem HCl 240 mg PO DAILY #30 cap DS: Summary Hospital Course: Patient was diagnosed with sick sinus syndrome and underwent PPM placement September 24, 2018. Cardiology and tie loader were both consulted on the case. Patient's conditions improved prior to discharge. He was continued on his treatment for other chronic medical conditions. - Time Spent with Patient Total time spent providing and/or coordinating discharge services: Less than 30 minutes - Quality: VTE Deep Vein Thrombosis/Pulmonary Embolism Present on Admission: No Exam Vital signs: Vital Signs 09/24/18 11:55 09/24/18 12:00 09/24/18 13:00 Temperature 98.0 F Pulse Rate 82 84 84 Respiratory Rate 16 Blood Pressure 120/73 Pulse Oximetry 95 09/24/18 14:00 09/24/18 15:00 09/24/18 16:00 Temperature 98.5 F Pulse Rate 72 98 H 106 H Respiratory Rate 16 Blood Pressure 131/89 Pulse Oximetry 96 09/24/18 17:00 09/24/18 18:00 09/24/18 19:59 Temperature 98.0 F Pulse Rate 118 H 108 H 68 Respiratory Rate 12 Blood Pressure 133/64 Pulse Oximetry 97 09/24/18 20:00 09/24/18 20:15 09/24/18 20:30 Temperature Pulse Rate 67 68 66 Respiratory Rate 12 12 12 Blood Pressure 128/64 103/59 L 104/56 L Pulse Oximetry 97 95 95 09/24/18 20:45 09/24/18 20:51 09/24/18 21:23 Temperature 98.0 F Pulse Rate 66 71 Respiratory Rate 15 Blood Pressure 109/60 Pulse Oximetry 97 97 09/24/18 21:45 09/24/18 22:00 09/24/18 23:00 Temperature 98 F Pulse Rate 71 74 80 Respiratory Rate 17 Blood Pressure 130/78 Pulse Oximetry 97 09/25/18 00:00 09/25/18 00:47 09/25/18 01:00 Temperature 98.9 F Pulse Rate 78 67 66 Respiratory Rate 18 Blood Pressure 119/69 Pulse Oximetry 97 09/25/18 02:00 09/25/18 03:00 09/25/18 04:01 Temperature Pulse Rate 62 60 60 Respiratory Rate Blood Pressure Pulse Oximetry 09/25/18 05:00 09/25/18 05:01 09/25/18 06:00 Temperature 98.5 F Pulse Rate 64 60 58 L Respiratory Rate 18 Blood Pressure 116/57 L Pulse Oximetry 98 09/25/18 07:00 09/25/18 09:28 Temperature 98.1 F Pulse Rate 60 60 Respiratory Rate 16 Blood Pressure 140/67 Pulse Oximetry 96 Intake & Output 09/24/18 09/25/18 09/25/18 18:59 06:59 18:59 Intake Total 290 / 290 Output Total 1825 / 1825 450 / 450 Balance -1825 / -1825 -160 / -160 Weight 85.5 kg Intake: IV 50 / 50 Ancef 2 GM Premix Inj 2 gm In 50 / 50 50 ml @ 100 mls/hr IV.SIG Q8H [facility] Rx#:[id number] Oral 240 / 240 Output: Urine 1825 / 1825 450 / 450 Other: Date of Last Bowel Movement 09/22/18 09/22/18 09/22/18 Narrative: GENERAL: NAD SKIN: Warm and dry. HEAD: Normocephalic. EYES: No scleral icterus. No injection or drainage. NECK: Supple, trachea midline. No JVD or lymphadenopathy. CARDIOVASCULAR: Regular rate and rhythm without murmurs, gallops, or rubs. Status post PPM placement RESPIRATORY: Breath sounds equal bilaterally. No accessory muscle use. GASTROINTESTINAL: Abdomen soft, non-tender, nondistended. MUSCULOSKELETAL: No cyanosis, or edema. BACK: Nontender without obvious deformity. No CVA tenderness. Results Procedures completed during hospitalization: Status post PPM placement September 24, 2018 - Impressions ITS Impressions Chest X-Ray 09/24/18 00:00 CONCLUSION: No evidence of pneumothorax. The finding seen on the prior semierect chest x- ray probably represented a skinfold. Discharge Plan - Discharge Disposition Patient Disposition: 01 Discharge Home - Discharge Condition Condition: Fair - Physicians Team Primary Care Provider: Gurpreet Gerard Attending Provider: Dariusz Boyle Other Providers: Cam Saeed MD
--- NOTE | 2018-09-25 11:27 | P.PN ---
Subjective Interval history: Follow-up sick sinus syndrome September 23, 2018-patient seen and examined, denies any chest pain or shortness of breath. Was seen by cardiology this a.m. Cardizem was added to patient's current medication September 24, 2018-patient seen and examined, no syncopal episode and denies any chest pain or shortness of breath. September 25, 2018-patient seen and examined, status post PPM placement. Complains of discomfort over the incision site, otherwise no chest pain or shortness of breath. Physical Exam Vital signs: Vital Signs 09/24/18 11:55 09/24/18 12:00 09/24/18 13:00 Temperature 98.0 F Pulse Rate 82 84 84 Respiratory Rate 16 Blood Pressure 120/73 Pulse Oximetry 95 09/24/18 14:00 09/24/18 15:00 09/24/18 16:00 Temperature 98.5 F Pulse Rate 72 98 H 106 H Respiratory Rate 16 Blood Pressure 131/89 Pulse Oximetry 96 09/24/18 17:00 09/24/18 18:00 09/24/18 19:59 Temperature 98.0 F Pulse Rate 118 H 108 H 68 Respiratory Rate 12 Blood Pressure 133/64 Pulse Oximetry 97 09/24/18 20:00 09/24/18 20:15 09/24/18 20:30 Temperature Pulse Rate 67 68 66 Respiratory Rate 12 12 12 Blood Pressure 128/64 103/59 L 104/56 L Pulse Oximetry 97 95 95 09/24/18 20:45 09/24/18 20:51 09/24/18 21:23 Temperature 98.0 F Pulse Rate 66 71 Respiratory Rate 15 Blood Pressure 109/60 Pulse Oximetry 97 97 09/24/18 21:45 09/24/18 22:00 09/24/18 23:00 Temperature 98 F Pulse Rate 71 74 80 Respiratory Rate 17 Blood Pressure 130/78 Pulse Oximetry 97 09/25/18 00:00 09/25/18 00:47 09/25/18 01:00 Temperature 98.9 F Pulse Rate 78 67 66 Respiratory Rate 18 Blood Pressure 119/69 Pulse Oximetry 97 09/25/18 02:00 09/25/18 03:00 09/25/18 04:01 Temperature Pulse Rate 62 60 60 Respiratory Rate Blood Pressure Pulse Oximetry 09/25/18 05:00 09/25/18 05:01 09/25/18 06:00 Temperature 98.5 F Pulse Rate 64 60 58 L Respiratory Rate 18 Blood Pressure 116/57 L Pulse Oximetry 98 09/25/18 07:00 09/25/18 09:28 Temperature 98.1 F Pulse Rate 60 60 Respiratory Rate 16 Blood Pressure 140/67 Pulse Oximetry 96 Intake & Output 09/24/18 09/25/18 09/25/18 18:59 06:59 18:59 Intake Total 290 / 290 Output Total 1825 / 1825 450 / 450 Balance -1825 / -1825 -160 / -160 Weight 85.5 kg Intake: IV 50 / 50 Ancef 2 GM Premix Inj 2 gm In 50 / 50 50 ml @ 100 mls/hr IV.SIG Q8H [facility] Rx#:[id number] Oral 240 / 240 Output: Urine 1825 / 1825 450 / 450 Other: Date of Last Bowel Movement 09/22/18 09/22/18 09/22/18 Narrative: GENERAL: NAD SKIN: Warm and dry. HEAD: Normocephalic. EYES: No scleral icterus. No injection or drainage. NECK: Supple, trachea midline. No JVD or lymphadenopathy. CARDIOVASCULAR: Regular rate and rhythm without murmurs, gallops, or rubs. Status post PPM placement RESPIRATORY: Breath sounds equal bilaterally. No accessory muscle use. GASTROINTESTINAL: Abdomen soft, non-tender, nondistended. MUSCULOSKELETAL: No cyanosis, or edema. BACK: Nontender without obvious deformity. No CVA tenderness. Results - Labs CBC & Chem 7: 09/23/18 05:48 09/23/18 05:48 - Imaging Impressions Chest X-Ray 09/24/18 00:00 CONCLUSION: 1. Evidence of 8 mm right-sided pneumothorax extending from lower to upper lateral chest. 2. Left-sided cardiac pacer placement with leads project in the right atrium and ventricle. Chest X-Ray 09/24/18 00:00 CONCLUSION: No evidence of pneumothorax. The finding seen on the prior semierect chest x- ray probably represented a skinfold. - Procedures Status post PPM placement September 24, 2018 Assessment and Plan - Plan 78-year-old man with Sick sinus syndrome Appreciate input from cardiology Bulk Picker has been consulted and patient is status post PPM placement September 24, 2018 Continue with calcium channel swetha Atrial fibrillation Continue home Xarelto Currently on Cardizem Hypertension/hyperlipidemia/PTSD Continue home medications
== END 2018-09-25 13:58 | disposition home or self-care (01) ==
LOC: NEPC 16:20 → NEDA 16:20 → HCIS 09-23 01:41
PROVIDERS: ADMIT Hospitalist; ATTEND Hospitalist